=== PATIENT | female | born 1960 | race Caucasian/White ===

== ENCOUNTER 2020-04-24 12:21 | Emergency (ER) | payer BC, OTHER ==
[~2020-04-24] VITALS: Ht 161.3 cm; Wt 109.8 kg
[~2020-04-24 12:21] MED LIST: CIPR250T30 PO; FENO43CA5 PO; INSU100C SQ; INSU100I13 SQ; LEVO25TA55 PO; LEVO500T59 PO; LIRA0.6P2 SQ; LISI2.5T PO; METF500T16 PO; MULT-496 PO; NIAC50TA3 PO; OMEG300C PO; PHEN37.598 PO; PIOG15TA42 PO; SIMV10TA15 PO; SULF1TAB23 PO
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
[2020-04-24 16:44] VITALS: BP 130/87
== END 2020-04-24 16:44 | disposition home or self-care (01) ==
LOC: ER 12:21
DX: S29.011A Strain of muscle and tendon of front wall of thorax, initial encounter (principal); S76.012A Strain of muscle, fascia and tendon of left hip, initial encounter; Z88.2 Allergy status to sulfonamides; V43.52XA Car driver injured in collision with other type car in traffic accident, initial encounter; Y93.I9 Activity, other involving external motion; Y92.488 Other paved roadways as the place of occurrence of the external cause; Y99.8 Other external cause status
CPT/HCPCS: 71045; 72170; 99284

== ENCOUNTER → 2020-12-21 | Outpatient (CLI) | payer BC ==
--- NOTE | 2021-01-02 10:41 | RAD ---
DATE: 12/21/2020 EXAM: DIGITAL SCREEN BILAT W/CAD HISTORY: Screening COMPARISON: 01/11/2013 This study was interpreted with the benefit of Computerized Aided Detection (CAD). Breast Density: SCATTERED The breast parenchyma shows scattered fibroglandular densities. Breast parenchyma level B. FINDINGS: There is a group of calcifications in the upper outer left breast at 2:00, 8.5 cm posterior to the nipple. No suspicious mass or architectural distortion in either breast. IMPRESSION: Indeterminate calcifications in the upper outer left breast. Recommend CC and ML magnification views to further evaluate. BI-RADS CATEGORY: 0 INCOMPLETE: NEEDS ADDITIONAL IMAGING EVALUATION AND/OR PRIOR MAMMOGRAMS FOR COMPARISON. RECOMMENDED FOLLOW-UP: ADD ADDITIONAL IMAGING PQRS compliance statement: Patient information was entered into a reminder system with a target due date for the next mammogram. Mammography is a sensitive method for finding small breast cancers, but it does not detect them all and is not a substitute for careful clinical examination. A negative mammogram does not negate a clinically suspicious finding and should not result in delay in biopsying a clinically suspicious abnormality. "Our facility is accredited by the [employer] Mammography [employer]."
== END ==
LOC: MAMMO 14:11
PROVIDERS: ATTEND Physician Assistant Medical
DX: Z12.31 Encounter for screening mammogram for malignant neoplasm of breast (principal)
CPT/HCPCS: 77067

== ENCOUNTER → 2021-01-17 | Outpatient (CLI) | payer BC ==
[~2021-01-17] MED LIST changes: -LISI2.5T PO; +LISI2.5T12 PO
--- NOTE | 2021-01-17 15:44 | RAD ---
EXAM: Left breast diagnostic mammogram. HISTORY: 60-year-old female presents for evaluation of left breast calcifications demonstrated on a m ammogram dated 12/21/2020. TECHNIQUE: Full-field true lateral and spot mag indication views of the left breast are obtained. COMPARISON: 12/21/2020 and 01/13/2013 BREAST PARENCHYMAL DENSITY: Level B - Scattered fibroglandular densities FINDINGS: There is a cluster of heterogeneous coarse microcalcifications within the 3:00 position of the left breast centered approximately 10 cm from the nipple. The size and density of several these c alcifications favors benignity. However, there are additional heterogeneous calcifications in this cl uster which remain indeterminant morphologically. There is faint nodular asymmetry in this location. No convincing mass or distortion is seen. There is an additional cluster of more round coarse benign calcifications within the 6:00 position at mid to posterior depth. There are few additional scattered benign calcifications. IMPRESSION: 1. Cluster of microcalcifications within the posterior 3:00 position of the left breast. Although the morphology of the largest calcifications favors benignity, the smaller calcifications remain indeter minant. Given the significant change compared to the prior study, stereotactic guided biopsy is recom mended for definitive diagnosis. 2. BI-RADS Category 4: Suspicious abnormality. Biopsy is recommended. These findings and recommendations were discussed with the patient and communicated to the referring physician office nursing at 1550 hours on 01/17/2021. If your mammogram demonstrates that you have dense breast tissue, which could hide abnormalities, and if you have other risk factors for breast cancer that have been identified, you might benefit from s upplemental screening tests that may be suggested by your ordering physician. Dense breast tissue, i n and of itself, is a relatively common condition. This information is not provided to cause undue c oncern, but rather to raise your awareness and to promote discussion with your physician regarding th e presence of other risk factors, in addition to dense breast tissue. A report of your mammography re sults will be sent to you and your physician. You should contact your physician if you have any ques tions or concerns regarding this report. Mammography is a sensitive method for finding small breast cancers, but it does not detect them all a nd is not a substitute for careful clinical examination. A negative mammogram does not negate a clin ically suspicious finding and should not result in delay in biopsying a clinically suspicious abnorma lity. PQRS compliance statement - Patient information was entered into a reminder system with a target due date for the next mammogram. "Our facility is accredited by the [employer] Mammography [employer]." Electronically signed by: Louise Boo MD (01/17/2021 3:42 PM) [id number]
== END ==
LOC: MAMMO 14:48
PROVIDERS: ATTEND Physician Assistant Medical
DX: R92.0 Mammographic microcalcification found on diagnostic imaging of breast (principal)
CPT/HCPCS: 77065